=== PATIENT | female | born 1940 | race Caucasian/White ===

== ENCOUNTER 2016-08-15 11:06 | Inpatient (IN) | payer MEDICARE ==
[~2016-08-15 11:06] MED LIST: ACTONEL150 MG PO; ASPIRIN325 M1 PO; AVALIDE 300-12.1 TAB PO; CALCIUM CARBON600 M2 PO; CRESTOR20 MG PO; MOTRIN800 MG PO; MULTIVITAMIN1 TAB PO; OMEPRAZOLE20 MG PO; PREDNISONE1 MG PO; TYLENOL650 MG PO; ULTRAM50 MG PO; VITAMIN D 22000 UNIT PO
[2016-08-15] MEDS ORDERED: CRESTOR20 M1 PO (11:19)
[2016-08-15] MEDS ORDERED: MELOXICAM15 M1 PO (11:20)
[2016-08-15] MEDS ORDERED: NEURONTIN100 M1 PO (11:20)
[2016-08-15] MEDS ORDERED: XALATAN2.5 M1 LEFT EYE (11:20)
[2016-08-15 11:56] LABS: BASO % 0.1 % (0-2); EOS % 0.1 % (0-7); HCT-HEMATOCRIT 40.6 % (34.0-49.0); HGB-HEMOGLOBIN 13.7 gm/dl (12.0-15.5); IMMATURE GRANULOCYTES ABSOLUTE 0.05 tho/cmm (0-0.03); IMMATURE GRANULOCYTES PERCENT 0.3 % (0-0.3); LYMPH % 2.8 % (20-45); LYMPH ABSOLUTE COUNT 0.4 tho/cmm (0.8-4.5); MCHC MEAN CORPUSCULAR HGB CONC 33.7 % (32.0-36.0); MCV (MEAN CELL VOLUME) 91.9 fl (82.0-96.0); MEAN PLATELET VOLUME 9.8 cmc (9.4-12.4); MONO % 4.7 % (0-12); MONOCYTE ABSOLUTE COUNT 0.7 tho/cmm (0.0-1.2); NEUTROPHIL ABSOLUTE COUNT 13.8 tho/cmm (1.6-8.0); NEUTROPHIL-AUTOMATED 13.8 tho/cmm (1.6-8.0); PLATELET COUNT 165 tho/cmm (150-450); RED BLOOD COUNT 4.42 mil/cmm (4.00-5.20); RED CELL DISTRIBUTION WIDTH 13.6 % (12.4-16.4)
[2016-08-15 12:17] LABS: ALB/GLOB RATIO 0.8 (0.8-2.0); ALBUMIN 3.4 g/dl (3.5-5.0); ALKALINE PHOSPHATASE 93 U/L (33-138); ALT/SGPT 37 U/L (12-78); ANION GAP 17 mmol/L (0-20); AST/SGOT 41 U/L (10-40); BILIRUBIN,TOTAL 0.7 mg/dl (0-1.5); BLOOD UREA NITROGEN 24 mg/dl (6-24); CALCIUM 8.7 mg/dl (8.5-10.5); CARBON DIOXIDE-VENOUS 23 mmol/L (22-32); CHLORIDE 107 mmol/l (96-110); CREATININE 1.42 mg/dl (0.50-1.10); GLUCOSE 136 mg/dL (70-110); LIPASE 97 U/L (73-393); POTASSIUM 3.5 mmol/L (3.7-5.1); SODIUM 143 mmol/L (135-145); eGFR VALUE FOR BLACK 42 mL/Min
[2016-08-15 12:57] LABS: URINE BILIRUBIN NEGATIVE (NEG); URINE BLOOD LARGE (NEG); URINE GLUCOSE (UA) NEGATIVE (NEG); URINE KETONE MODERATE (NEG); URINE LEUKOCYTE ESTERASE POSITIVE (NEG); URINE NITRITE POSITIVE (NEG); URINE PH 6.5 (5.0-8.0); URINE PROTEIN MODERATE (NEG); URINE SPECIFIC GRAVITY 1.015 (1.003-1.030)
[2016-08-15 12:59] LABS: URINE APPEARANCE HAZY; URINE COLOR YELLOW
[2016-08-15 13:04] LABS: URINE BACTERIA 3+; URINE EPITHELIAL CELLS 0-2 /[HPF] (0-10); URINE RBC RARE /[HPF] (0-5); URINE WBC 25-35 /[HPF] (0-5)
[2016-08-15 17:31] LABS: INR 1.3 INR (0.9-1.1); PROTHROMBIN TIME 15.2 SECONDS (9.0-13.6)
[2016-08-15 20:56] LABS: PROCALCITONIN 6.95 ng/ml (0.05-0.09)
[2016-08-16 04:41] LABS: BASO % 0.2 % (0-2); EOS % 0.2 % (0-7); HCT-HEMATOCRIT 32.3 % (34.0-49.0); HGB-HEMOGLOBIN 10.8 gm/dl (12.0-15.5); IMMATURE GRANULOCYTES ABSOLUTE 0.03 tho/cmm (0-0.03); IMMATURE GRANULOCYTES PERCENT 0.3 % (0-0.3); LYMPH % 5.3 % (20-45); LYMPH ABSOLUTE COUNT 0.5 tho/cmm (0.8-4.5); MCH (MEAN CORPUSCULAR HGB) 30.6 pg (28.0-32.0); MCHC MEAN CORPUSCULAR HGB CONC 33.4 % (32.0-36.0); MCV (MEAN CELL VOLUME) 91.5 fl (82.0-96.0); MEAN PLATELET VOLUME 10.1 cmc (9.4-12.4); MONO % 7.4 % (0-12); MONOCYTE ABSOLUTE COUNT 0.7 tho/cmm (0.0-1.2); NEUTROPHIL ABSOLUTE COUNT 8.3 tho/cmm (1.6-8.0); NEUTROPHIL-AUTOMATED 8.3 tho/cmm (1.6-8.0); NEUTROPHILS % 86.6 % (40-80); PLATELET COUNT 139 tho/cmm (150-450); RED BLOOD COUNT 3.53 mil/cmm (4.00-5.20); RED CELL DISTRIBUTION WIDTH 13.8 % (12.4-16.4); WHITE BLOOD COUNT 9.6 tho/cmm (4.0-10.0)
[2016-08-16 04:57] LABS: ANION GAP 12 mmol/L (0-20); BLOOD UREA NITROGEN 16 mg/dl (6-24); CALCIUM 7.5 mg/dl (8.5-10.5); CARBON DIOXIDE-VENOUS 22 mmol/L (22-32); CHLORIDE 116 mmol/l (96-110); CREATININE 0.89 mg/dl (0.50-1.10); GLUCOSE 105 mg/dL (70-110); SODIUM 147 mmol/L (135-145); eGFR VALUE FOR BLACK 74 mL/Min
[2016-08-16 04:59] LABS: POTASSIUM 3.4 mmol/L (3.7-5.1)
--- NOTE | 2016-08-16 13:00 | NUR ---
VIRTUAL CARE NOTE: PT RESTING ON BED, STATES FEELING NAUSEOUS AND HAVING HEADACHE TODAY. TOOK MOTRIN RECENTLY FOR MANLEY, WILL WAIT TO SEE IF IT HELPS. ENCOURAGED PT TO DRINK MORE IF ABLE AND TRY TYLENOL OR NORCO IF THE HEADACHE DOES NOT GO AWAY. ENCOURAGE RESTING CALL IF NEEDED. PT DENIES FURTHER NEEDS.
[2016-08-17 04:54] LABS: BASO % 0.2 % (0-2); EOSINOPHIL ABSOLUTE COUNT 0.1 tho/cmm (0.0-0.7); HCT-HEMATOCRIT 32.4 % (34.0-49.0); HGB-HEMOGLOBIN 10.9 gm/dl (12.0-15.5); IMMATURE GRANULOCYTES ABSOLUTE 0.01 tho/cmm (0-0.03); IMMATURE GRANULOCYTES PERCENT 0.1 % (0-0.3); LYMPH % 8.4 % (20-45); LYMPH ABSOLUTE COUNT 0.7 tho/cmm (0.8-4.5); MCH (MEAN CORPUSCULAR HGB) 30.3 pg (28.0-32.0); MCHC MEAN CORPUSCULAR HGB CONC 33.6 % (32.0-36.0); MEAN PLATELET VOLUME 9.8 cmc (9.4-12.4); MONO % 8.3 % (0-12); MONOCYTE ABSOLUTE COUNT 0.7 tho/cmm (0.0-1.2); NEUTROPHIL ABSOLUTE COUNT 6.8 tho/cmm (1.6-8.0); NEUTROPHIL-AUTOMATED 6.8 tho/cmm (1.6-8.0); PLATELET COUNT 151 tho/cmm (150-450); RED CELL DISTRIBUTION WIDTH 13.7 % (12.4-16.4); WHITE BLOOD COUNT 8.2 tho/cmm (4.0-10.0)
[2016-08-17 05:05] LABS: ANION GAP 12 mmol/L (0-20); BLOOD UREA NITROGEN 9 mg/dl (6-24); CALCIUM 7.9 mg/dl (8.5-10.5); CARBON DIOXIDE-VENOUS 22 mmol/L (22-32); CHLORIDE 112 mmol/l (96-110); CREATININE 0.87 mg/dl (0.50-1.10); GLUCOSE 89 mg/dL (70-110); SODIUM 143 mmol/L (135-145); eGFR VALUE FOR BLACK 76 mL/Min
[2016-08-17 05:15] LABS: POTASSIUM 3.1 mmol/L (3.7-5.1)
--- NOTE | 2016-08-17 19:02 | NUR ---
VIRTUAL CARE NOTE: ASSESSMENT DEFERRED. PT. SLEEPING.
--- NOTE | 2016-08-18 17:46 | NUR ---
VN ROUNDING-PATIENT WAS SLEEPING BUT I ACCIDENTLY WOKE HER UP WITH TRYING TO ROUND ON HER. PATIENT STATES THE AREA WHERE THE NEPH TUBE IS A LITTLE TENDER BUT THE NURSES ARE KEEPING THE PAIN CONTROLLED. SHE SAID SHE GOT BACK ABOUT 10 THIS MORNING AND HAS BEEN UP IN THE HALLS AMBULATING. HER DAUGHTER WAS AT THE BEDSIDE AND DINNER TRAY WAS THERE. PATIENT OR DAUGHTER HAD NO OTHER CONCERNS OR QUESTIONS-EMR REVIEWED.
[2016-08-19 04:40] LABS: ANION GAP 10 mmol/L (0-20); BLOOD UREA NITROGEN 3 mg/dl (6-24); CALCIUM 8.5 mg/dl (8.5-10.5); CARBON DIOXIDE-VENOUS 29 mmol/L (22-32); CHLORIDE 104 mmol/l (96-110); CREATININE 0.86 mg/dl (0.50-1.10); GLUCOSE 97 mg/dL (70-110); SODIUM 140 mmol/L (135-145); eGFR VALUE FOR BLACK 77 mL/Min
[2016-08-19 04:43] LABS: POTASSIUM 2.7 mmol/L (3.7-5.1)
--- NOTE | 2016-08-19 20:18 | NUR ---
KIERA SMITH-VISITED WITH PATIENT AND SPOUSE AT BEDSIDE-PAIN IS DOING BETTER AND STAYING CONTROLLED. WE TALKED ABOUT THAT SHE WILL BE DISCHARGED WITH THE NEPH TUBE AND ASKED IF SHE HAD ANY QUESTIONS REGARDING IT. SHE DID NOT. HER APPETITE IS NOT VERY GOOD BUT DOES BETTER WHEN GIVEN ZOFRAN PRIOR TO EATING. SPOUSE BROUGHT IN RASPBERRIES TODAY FOR HER AND SHE TOLERATED THOSE. NO OTHER QUESTIONS OR CONCERNS. EMR REVIEWED.
[2016-08-20 05:03] LABS: ANION GAP 10 mmol/L (0-20); BLOOD UREA NITROGEN 3 mg/dl (6-24); CALCIUM 8.1 mg/dl (8.5-10.5); CARBON DIOXIDE-VENOUS 30 mmol/L (22-32); CHLORIDE 105 mmol/l (96-110); GLUCOSE 94 mg/dL (70-110); POTASSIUM 3.1 mmol/L (3.7-5.1); SODIUM 142 mmol/L (135-145); eGFR VALUE FOR BLACK 84 mL/Min
[2016-08-20] MEDS ORDERED: CIPRO500 M2 PO (11:29)
[2016-08-20] MEDS ORDERED: NORCO 5-325 TA1 EACH PO (11:32)
[2016-08-20] MEDS ORDERED: MIRALAX17 G2 PO (11:42)
[2016-08-20] MEDS ORDERED: ZOFRAN4 M2 PO (11:43)
--- NOTE | 2016-08-20 12:35 | NUR ---
VIRTUAL CARE NOTE: PT RESTING ON BED, AND DAUGHTER AT BEDSIDE. PT AND FAMILY READY FOR DISCHARGE INSTRUCTIONS. INFORMATION GIVEN TO PT, ALL QUESTIONS ANSWERED. PT WILL GO HOME WITH NEPHROSTOMY TUBE, INFORMATION REINFORCED ON THE TUBE CARE AT HOME. PT AND FAMILY DENIES FURTHER QUESTIONS OR CONCERNS. INFORMED FLOOR NURSE DISCHARGE TEACHING COMPLETE.
== END 2016-08-20 12:49 | DRG 690 ==
LOC: EDMED 11:06 → EMR2 15:43 → 5WD 16:37
PROVIDERS: Emergency Medicine; Internal Medicine; Registered Nurse; ADMIT Hospitalist
DX: N39.0 Urinary tract infection, site not specified (principal); N13.30 Unspecified hydronephrosis; N12 Tubulo-interstitial nephritis, not specified as acute or chronic; K21.9 Gastro-esophageal reflux disease without esophagitis; E78.5 Hyperlipidemia, unspecified
CPT/HCPCS: C1729; C1769; C1894; C8929; J0696; J0744; J1650; J1940; J2250; J2270; J2405; J2543; J3010; J7030; Q9967